=== PATIENT | male | born 1950 | race Caucasian/White ===

== ENCOUNTER 2024-07-31 18:38 | Observation (INO) | payer MEDICARE, BC ==
[~2024-07-31] VITALS: Ht 172.7 cm; Wt 82.2 kg
[2024-07-31] MEDS ORDERED: PRILOSEC OTC20 MG PO (18:47)
[2024-07-31] MEDS ORDERED: FLOMAX0.4 MG PO (18:48)
[2024-07-31] MEDS ORDERED: ALLOPURINOL300 M1 PO (18:48)
[2024-07-31] MEDS ORDERED: OXYCODONE HYDROC5 M1 PO (18:48)
[2024-07-31] MEDS ORDERED: COZAAR 50MG50 MG/TAB PO (18:49)
[2024-07-31] MEDS ORDERED: oxyCODONE 5 MG TAB PO ONE (19:15)
[2024-07-31 19:24] LABS: BASO # 0.03 K/mm3 (0.02-0.10); EOS # 0.04 K/mm3 (0.04-0.40); EOS % 0.3 % (0.0-4.0); HEMATOCRIT 37.2 % (42.0-52.0); HEMOGLOBIN 12.4 g/dL (13.5-18.0); LYMPH# 1.26 K/mm3 (1.50-4.00); MEAN CELL VOLUME 88 fl (78-100); MEAN CORPUSCULAR HEMOGLOBIN 29 pg (27-31); MEAN CORPUSCULAR HGB CONC 33 g/dL (33-37); MEAN PLATELET VOLUME 10.3 fl (7.4-10.4); MONO # 1.04 K/mm3 (0.20-0.80); NEU # 12.62 K/mm3 (1.40-6.50); PLATELET COUNT 190 K/mm3 (130-400); RED BLOOD COUNT 4.22 M/mm3 (4.20-5.60)
[2024-07-31 19:32] LABS: CALCIUM 9.6 mg/dL (8.3-10.5)
[2024-07-31] MEDS ORDERED: fentaNYL 100 MCG/2 ML VIAL IV ONE (19:45)
[2024-07-31] MEDS ORDERED: Ondansetron 4 MG/2 ML VIAL IV ONE (19:45)
[2024-07-31] MEDS ORDERED: NS 1,000 ML IV SCH (20:45)
[2024-07-31] MEDS ORDERED: Morphine 4 MG/ML VIAL IV PRN (21:00)
[2024-07-31] MEDS ORDERED: Ondansetron 4 MG/2 ML VIAL IV PRN (21:30)
[2024-07-31 22:00] VITALS: BP 156/82
[2024-07-31 22:47] LABS: PH-URINE 5.5 (5.0 - 8.0); URINE APPEARANCE CLEAR (CLEAR); URINE COLOR DARK YELLOW (YELLOW)
[2024-07-31 22:48] LABS: URINE BILIRUBIN NEGATIVE (NEGATIVE); URINE BLOOD 2+ (NEGATIVE); URINE GLUCOSE NEGATIVE (NEGATIVE); URINE KETONE NEGATIVE (NEGATIVE); URINE LEUKOCYTE ESTERASE NEGATIVE (NEGATIVE); URINE NITRATE NEGATIVE (NEGATIVE); URINE PROTEIN(semi-quant) TRACE (NEGATIVE)
[2024-07-31 22:51] LABS: URINE MUCUS PRESENT (NOT PRESENT)
--- NOTE | 2024-07-31 23:00 | NUR ---
PATIENT BROUGHT TO FLOOR, ROOM 201 VIA WHEELCHAIR FROM ED FOR OBS. UP TO TOILET AT THIS TIME AND URINE SAMPLE GIVEN. URINE STRAINED AND NO STONE FOUND. AMBULATING WITH SBA, GAIT STEADY. REFUSED GOWN. NO WALKING AIDS NEEDED. ORIENTED TO ROOM AN CALL SYSTEM FLUIDS AND ATB INFUSING PER ORDERS.
[2024-08-01 03:00] VITALS: BP 155/80
[2024-08-01 07:10] VITALS: BP 170/80
--- NOTE | 2024-08-01 07:18 | NUR ---
REPORT FROM NICOLÁS CAIN
[2024-08-01 07:53] LABS: BASO # 0.02 K/mm3 (0.02-0.10); EOS # 0.05 K/mm3 (0.04-0.40); EOS % 0.4 % (0.0-4.0); HEMATOCRIT 38.1 % (42.0-52.0); HEMOGLOBIN 12.5 g/dL (13.5-18.0); LYMPH# 1.55 K/mm3 (1.50-4.00); MEAN CELL VOLUME 90 fl (78-100); MEAN CORPUSCULAR HEMOGLOBIN 30 pg (27-31); MEAN CORPUSCULAR HGB CONC 33 g/dL (33-37); MEAN PLATELET VOLUME 10.3 fl (7.4-10.4); MONO # 1.06 K/mm3 (0.20-0.80); NEU # 11.53 K/mm3 (1.40-6.50); PLATELET COUNT 188 K/mm3 (130-400); RED BLOOD COUNT 4.22 M/mm3 (4.20-5.60); RED CELL DISTRIBUTION WIDTH 14.1 % (11.5-14.5); WHITE BLOOD COUNT 14.2 K/mm3 (4.8-10.8)
[2024-08-01 08:01] LABS: ALBUMIN 3.8 g/dL (3.4-4.8)
[2024-08-01 08:02] LABS: CALCIUM 9.1 mg/dL (8.3-10.5)
[2024-08-01 08:04] LABS: TOTAL PROTEIN 6.6 g/dL (6.2-8.1)
[2024-08-01 08:05] LABS: TOTAL BILIRUBIN 0.9 mg/dL (0.2-1.2)
[2024-08-01] MEDS ORDERED: Allopurinol 300 MG TAB PO SCH (09:00)
[2024-08-01] MEDS ORDERED: Losartan 50 MG TAB PO SCH (09:00)
[2024-08-01] MEDS ORDERED: Pantoprazole 40 MG in NS 10 ML IV SCH (09:00)
--- NOTE | 2024-08-01 09:23 | NUR ---
PT ALERT AND ORIENTED X4, PT PASSED A KIDNEY STONE THIS MORNING. PT ADVANCED TO GENERAL DIET WHICH HAS BEEN CALLED TO THE KITCHEN. PROVIDER JAIMEE WISHES TO SEND HIS STONE TO THE LAB, ASSESSED AND MEDICATIONS DELIVERED WITHOUT COMPLICATION. MEDICATIONS DELIVERED BY BOBBI CAIN. PT NOW RESTING IN BED WITH CALL LIGHT IN REACH, NO FURTHER NEEDS EXPRESSED
[2024-08-01 11:19] VITALS: BP 157/77
--- NOTE | 2024-08-01 11:55 | NUR ---
PT DISCHARGED BY JOHANNA CAIN, PT HAD QUESTIONS ABOUT UROLOGY JOHANNA CAIN INSTRUCTED PT TO CALL AND MAKE AN APPT TO ESTABLISH CARE. PT DENIED ANY FURHTER QUESTIONS, DISCHARGE PACKET GIVEN AND PT LEFT WITH ALL BELONGINGS. PT AMBULATED OFF THE FLOOR AT 1155
== END 2024-08-01 11:55 | disposition home or self-care (01) ==
LOC: ED 18:38 → MED/SURG 21:17
PROVIDERS: Family Medicine; ADMIT Nurse Practitioner
DX: N13.2 Hydronephrosis with renal and ureteral calculous obstruction (principal); N13.4 Hydroureter; D72.829 Elevated white blood cell count, unspecified; N17.9 Acute kidney failure, unspecified
CPT/HCPCS: G0378; J0744; J2270; J2405; J2470; J3010; J7030